=== PATIENT | female | born 1975 | race Caucasian/White ===

== ENCOUNTER → 2017-03-31 | Outpatient (CLI) | payer OTHER ==
[~2017-03-31] MED LIST: CITA20TA9 PO; HYDR12.53 PO; LEVO25TA4 PO; OMNIPAQUE 350 MG/ML, 100ML BOTTLE ONE; ONDA4TAB7 PO; OXYC-223 PO; SULF1TAB24 PO
== END | disposition home or self-care (01) ==
LOC: CFH 12:37
PROVIDERS: ATTEND Internal Medicine Hematology & Oncology
DX: K76.89 Other specified diseases of liver (principal); C50.412 Malignant neoplasm of upper-outer quadrant of left female breast; Z90.13 Acquired absence of bilateral breasts and nipples; Z92.21 Personal history of antineoplastic chemotherapy
CPT/HCPCS: 74160; Q9967

== ENCOUNTER → 2017-06-01 | Outpatient (CLI) | payer OTHER ==
[~2017-06-01] MED LIST changes: -OMNIPAQUE 350 MG/ML, 100ML BOTTLE ONE
== END | disposition home or self-care (01) ==
LOC: CFH 11:40
PROVIDERS: ATTEND Radiology Radiation Oncology
DX: M77.31 Calcaneal spur, right foot (principal); C50.411 Malignant neoplasm of upper-outer quadrant of right female breast

== ENCOUNTER → 2017-06-30 | Outpatient (CLI) | payer OTHER | END | disposition home or self-care (01) | LOC: ROC 09:48 | PROVIDERS: ATTEND Radiology Radiation Oncology | DX: C50.911 Malignant neoplasm of unspecified site of right female breast (principal) | CPT/HCPCS: 99212; G0463 ==

== ENCOUNTER → 2017-07-12 | Outpatient (CLI) | payer OTHER ==
[~2017-07-12] MED LIST changes: +DULO20CA45 PO; +TAMO20TA PO
[2017-07-12 10:34] LABS: HEMATOCRIT 39.4 % (34.6-47.8); HEMOGLOBIN 13.6 g/dL (11.7-16.4); WHITE BLOOD COUNT 3.8 x10^3/uL (3.4-10)
[2017-07-12 10:46] LABS: ASPARTATE AMINO TRANSFERASE 11 U/L (15-37); BLOOD UREA NITROGEN 12 mg/dL (7-18)
== END | disposition home or self-care (01) ==
LOC: STAR 09:44
PROVIDERS: ATTEND Obstetrics & Gynecology
DX: Z01.818 Encounter for other preprocedural examination (principal); Z85.3 Personal history of malignant neoplasm of breast
CPT/HCPCS: 36415; 71020; 80053; 81003; 85025

== ENCOUNTER 2017-07-27 05:45 | Inpatient (IN) | payer OTHER ==
[~2017-07-27] VITALS: Ht 167.6 cm; Wt 85.8 kg
[~2017-07-27 05:45] MED LIST changes: -OXYC-223 PO; +OXYC-306 PO
[2017-07-27] MEDS ORDERED: LACTATED RINGERS 1,000 ML IV SCH (06:15)
[2017-07-27 06:21] VITALS: BP 119/78
[2017-07-27] MEDS ORDERED: FENTANYL PF 100 MCG/2ML ONE ×3 (06:58→09:56)
[2017-07-27] MEDS ORDERED: MIDAZOLAM 1 MG/ML, 2ML ONE (06:58)
[2017-07-27] MEDS ORDERED: EPINEPHRINE 1 MG/ML, 1ML ONE (07:21)
[2017-07-27] MEDS ORDERED: FLUORESCEIN SODIUM 500 MG/5 ML ONE (07:21)
[2017-07-27] MEDS ORDERED: BUPIVACAINE/PF 0.25% ONE (07:21)
[2017-07-27] MEDS ORDERED: CEFAZOLIN 1,000 MG ONE (07:32)
[2017-07-27] MEDS ORDERED: NEOSTIGMINE 1 MG/ML, 10ML ONE (07:32)
[2017-07-27] MEDS ORDERED: GLYCOPYRROLATE 0.2MG/1ML, 5ML ONE (07:32)
[2017-07-27] MEDS ORDERED: ONDANSETRON 2MG/ML, 2ML ONE (07:32)
[2017-07-27] MEDS ORDERED: SUCCINYLCHOLINE 20 MG/ML, 10ML ONE (07:32)
[2017-07-27] MEDS ORDERED: PROPOFOL 10 MG/ML, 20ML ONE (07:32)
[2017-07-27] MEDS ORDERED: KETOROLAC 30 MG/1 ML ONE (07:32)
[2017-07-27] MEDS ORDERED: ROCURONIUM 10 MG/ML ONE (07:32)
[2017-07-27] MEDS ORDERED: BUPIVACAINE/PF-EPI 0.25% 1:200K INFIL ONE (08:10)
[2017-07-27] MEDS ORDERED: METOPROLOL 1 MG/ML, 5ML IV PRN (08:30)
[2017-07-27] MEDS ORDERED: HYDROmorphone 1 MG/ML, 1ML IV PRN (08:30)
[2017-07-27] MEDS ORDERED: HYDROcodone/APAP 7.5-325MG/15ML UDC PO PRN (08:30)
[2017-07-27] MEDS ORDERED: EPHEDRINE 50 MG/ML, 1ML IVPush PRN (08:30)
[2017-07-27] MEDS ORDERED: ALBUTEROL SULFATE 2.5 MG/3 ML NPPB PRN (08:30)
[2017-07-27] MEDS ORDERED: hydrALAzine 20 MG/ML, 1ML IV PRN (08:30)
[2017-07-27] MEDS ORDERED: MEPERIDINE/PF 25MG/0.5ML IVPush PRN (08:30)
[2017-07-27] MEDS ORDERED: ACETAMINOPHEN 325 MG TABLET PO PRN (08:30)
[2017-07-27] MEDS ORDERED: PROMETHAZINE 25 MG/ML, 1ML IV PRN (08:30)
[2017-07-27] MEDS ORDERED: LABETALOL 5MG/ML, 20ML IV PRN (08:30)
[2017-07-27] MEDS ORDERED: FENTANYL PF 100 MCG/2ML IV PRN (08:30)
[2017-07-27] MEDS ORDERED: ONDANSETRON 2MG/ML, 2ML IVPush PRN (08:30)
[2017-07-27] MEDS ORDERED: OXYcodone 5 MG/5 ML ORAL.SOL UDC PO PRN (08:30)
[2017-07-27] MEDS ORDERED: MIDAZOLAM 1 MG/ML, 2ML IV PRN (08:30)
[2017-07-27] MEDS ORDERED: OXYcodone 5 MG/5 ML ORAL.SOL UDC ONE (09:56)
[2017-07-27] MEDS ORDERED: ACETAMINOPHEN 650 MG/20.3 ML UDC ONE (09:56)
[2017-07-27] MEDS ORDERED: HYDROmorphone 2 MG/ML, 1ML IV PRN (11:30)
[2017-07-27] MEDS ORDERED: KETOROLAC 30 MG/1 ML IV PRN (11:30)
[2017-07-27] MEDS ORDERED: ONDANSETRON 2MG/ML, 2ML IV PRN (11:30)
[2017-07-27] MEDS: POTASSIUM CHLORIDE 20 MEQ in D5%-0.45% NACL 1,000 ML IV SCH ×2 (11:59→20:26)
[2017-07-27] MEDS: HYDROcodone/APAP 7.5-325MG/15ML UDC PO PRN ×3 (13:15→21:18)
[2017-07-27] MEDS: SIMETHICONE 80 MG CHEW TAB PO SCH (17:14)
[2017-07-27 19:43] VITALS: BP 115/71
[2017-07-27] MEDS: DOCUSATE 100 MG CAPSULE PO SCH (20:26)
[2017-07-27] MEDS: DULOXETINE 20 MG CAPSULE.DR PO SCH (20:28)
[2017-07-27] MEDS: SODIUM CHLORIDE FLUSH 10ML SYR IVF SCH (20:29)
[2017-07-27 23:52] VITALS: BP 110/67
[2017-07-28] MEDS: HYDROcodone/APAP 7.5-325MG/15ML UDC PO PRN ×3 (01:25→09:30)
[2017-07-28] MEDS: SIMETHICONE 80 MG CHEW TAB PO SCH ×2 (01:25→08:43)
[2017-07-28] MEDS: POTASSIUM CHLORIDE 20 MEQ in D5%-0.45% NACL 1,000 ML IV SCH (02:53)
[2017-07-28 04:19] VITALS: BP 109/72
[2017-07-28 06:00] LABS: HEMATOCRIT 31.5 % (34.6-47.8); WHITE BLOOD COUNT 5.9 x10^3/uL (3.4-10)
[2017-07-28] MEDS ORDERED: LEVOTHYROXINE 50 MCG TABLET PO SCH (06:00)
[2017-07-28 08:43] VITALS: BP 116/74
[2017-07-28] MEDS: DULOXETINE 20 MG CAPSULE.DR PO SCH (08:43)
[2017-07-28] MEDS: SODIUM CHLORIDE FLUSH 10ML SYR IVF SCH (08:43)
[2017-07-28] MEDS: DOCUSATE 100 MG CAPSULE PO SCH (08:43)
[2017-07-28] MEDS ORDERED: FUROSEMIDE 20 MG TABLET PO ONE (09:00)
[2017-07-28] MEDS ORDERED: CITALOPRAM 10 MG TABLET PO SCH (09:00)
== END 2017-07-28 11:03 | disposition home or self-care (01) | DRG 738 ==
LOC: OUT 05:45 → 4NOR 10:46 → OUT 16:21 → 4NOR 16:22
PROVIDERS: ADMIT Obstetrics & Gynecology; ATTEND Obstetrics & Gynecology
PROC: 0UT7FZZ Resection of Bilateral Fallopian Tubes, Via Natural or Artificial Opening With Percutaneous Endoscopic Assistance (ICD-10-PCS; 2017-07-27)
PROC: 0UT9FZZ Resection of Uterus, Via Natural or Artificial Opening With Percutaneous Endoscopic Assistance (ICD-10-PCS; 2017-07-27)
PROC: 0UT2FZZ Resection of Bilateral Ovaries, Via Natural or Artificial Opening With Percutaneous Endoscopic Assistance (ICD-10-PCS; principal; 2017-07-27 07:30)
DX: C56.9 Malignant neoplasm of unspecified ovary (principal); E03.9 Hypothyroidism, unspecified; Z79.810 Long term (current) use of selective estrogen receptor modulators (SERMs); Z78.0 Asymptomatic menopausal state; Z17.0 Estrogen receptor positive status [ER+]; Z85.3 Personal history of malignant neoplasm of breast; Z90.13 Acquired absence of bilateral breasts and nipples
CPT/HCPCS: 36415; 85025; 86850; 86900; 86923; 88307; J0171; J0690; J1885; J2250; J2405; J2704; J2710; J3010; J3480; J3490; J0330; J7120

== ENCOUNTER → 2017-10-29 | Outpatient (CLI) | payer OTHER | END | disposition home or self-care (01) | LOC: CFH 09:05 | PROVIDERS: ATTEND Physician Assistant | DX: M51.36 Other intervertebral disc degeneration, lumbar region (principal); M51.37 Other intervertebral disc degeneration, lumbosacral region; M51.26 Other intervertebral disc displacement, lumbar region | CPT/HCPCS: 72148 ==

== ENCOUNTER → 2017-11-01 | Outpatient (CLI) | payer OTHER ==
[2017-11-02 17:30] LABS: ANA SCREEN POSITIVE (Negative); ANA TITER MIXED
== END | disposition home or self-care (01) ==
LOC: LAB 14:03
PROVIDERS: ATTEND Internal Medicine Hematology & Oncology
DX: Z51.11 Encounter for antineoplastic chemotherapy (principal); D70.1 Agranulocytosis secondary to cancer chemotherapy; D63.0 Anemia in neoplastic disease; I89.9 Noninfective disorder of lymphatic vessels and lymph nodes, unspecified; L08.9 Local infection of the skin and subcutaneous tissue, unspecified; C50.419 Malignant neoplasm of upper-outer quadrant of unspecified female breast
CPT/HCPCS: 36415; 85651; 86038; 86039

== ENCOUNTER → 2017-12-01 | Outpatient (CLI) | payer OTHER ==
[2017-12-01 12:44] LABS: HCT (SEDRATE) 39.3 % (34.6-47.8)
[2017-12-01 12:45] LABS: BASOPHILS # (AUTO) 0.02 x10^3/uL (0-0.1); BASOPHILS % (AUTO) 1 % (0-1); EOSINOPHILS # (AUTO) 0.21 x10^3/uL (0-0.4); EOSINOPHILS % (AUTO) 5 % (1-7); LYMPHOCYTES # (AUTO) 1.07 x10^3/uL (1-3.4); LYMPHOCYTES % (AUTO) 27 % (22-44); MD NO; MEAN CORPUSCULAR HGB CONC 34.4 g/dL (32.4-35.8); MEAN CORPUSCULAR VOLUME 98.9 fL (80-100); MEAN PLATELET VOLUME 9.1 fL (7.4-10.4); MONOCYTES # (AUTO) 0.29 x10^3/uL (0.2-0.8); MONOCYTES % (AUTO) 7 % (2-9); NEUTROPHILS # (AUTO) 2.43 x10^3/uL (1.8-6.8); NEUTROPHILS % (AUTO) 60 % (42-75); PLATELET COUNT 196 x10^3/uL (130-400); RED BLOOD COUNT 3.95 x10^6/uL (3.82-5.3); RED CELL DISTRIBUTION WIDTH 12.5 % (9.6-15.2)
[2017-12-01 12:48] LABS: MICROSCOPIC NOT IND
[2017-12-01 12:49] LABS: CULTURE INDICATED? NO
[2017-12-01 12:52] LABS: CHLORIDE 106 mmol/L (98-107)
[2017-12-01 13:08] LABS: ANION GAP 9 mmol/L (5-15); CALCIUM 8.6 mg/dL (8.5-10.1); CREATININE 0.77 mg/dL (0.55-1.02)
[2017-12-01 13:09] LABS: ALANINE AMINOTRANSFERASE 28 U/L (12-78); ALBUMIN 4.3 g/dL (3.4-5.0); ALKALINE PHOSPHATASE 72 U/L (45-117); BILIRUBIN,TOTAL 1.6 mg/dL (0.2-1.0); C-REACTIVE PROTEIN, QUANT 0.08 mg/dL (0.02-0.49); CREATINE KINASE, TOTAL 354 U/L (26-192); TOTAL PROTEIN 7.3 g/dL (6.4-8.2)
== END ==
LOC: CFH 10:07
PROVIDERS: ATTEND Specialist
DX: M35.9 Systemic involvement of connective tissue, unspecified (principal)
CPT/HCPCS: 36415; 80053; 81003; 82550; 84443; 85025; 85651; 85730; 86038; 86140; 86160; 86225; 86235

== ENCOUNTER → 2017-12-01 | Outpatient (CLI) | payer OTHER | LOC: ROC 10:05 | PROVIDERS: ATTEND Radiology Radiation Oncology | DX: C50.912 Malignant neoplasm of unspecified site of left female breast (principal) | CPT/HCPCS: 99212; G0463 ==

== ENCOUNTER → 2018-02-02 | Outpatient (CLI) | payer OTHER | END | disposition home or self-care (01) | LOC: ROC 07:27 | PROVIDERS: ATTEND Radiology Radiation Oncology | DX: Z08 Encounter for follow-up examination after completed treatment for malignant neoplasm (principal); C50.911 Malignant neoplasm of unspecified site of right female breast; Z90.13 Acquired absence of bilateral breasts and nipples; Z92.3 Personal history of irradiation | CPT/HCPCS: 99213; G0463 ==

== ENCOUNTER 2018-02-10 06:36 | Day surgery (SDC) | payer OTHER ==
[~2018-02-10] VITALS: Ht 167.6 cm; Wt 90.9 kg
[~2018-02-10 06:36] MED LIST changes: +ANAS1TAB3 PO; +ARIP2TAB2 PO; +AUGMENTIN PO; +DULO60CA7 PO
[2018-02-10] MEDS ORDERED: LACTATED RINGERS 1,000 ML IV SCH (07:10)
[2018-02-10 07:28] VITALS: BP 122/83
[2018-02-10] MEDS ORDERED: LIDOCAINE-MPF 1%, 2ML INFIL ONE (07:30)
[2018-02-10] MEDS ORDERED: ONDANSETRON 2MG/ML, 2ML IVPush ONE (07:30)
[2018-02-10] MEDS ORDERED: ACETAMINOPHEN 500 MG TABLET PO ONE (07:30)
[2018-02-10] MEDS ORDERED: SCOPOLAMINE PATCH, 1.5MG PATCH.TD72 TD ONE (07:30)
[2018-02-10] MEDS ORDERED: BUPIVACAINE/PF 0.5% ONE (07:43)
[2018-02-10] MEDS ORDERED: EPINEPHRINE 1 MG/ML, 1ML ONE (07:44)
[2018-02-10] MEDS ORDERED: GABAPENTIN 300 MG CAPSULE PO ONE (08:00)
[2018-02-10] MEDS ORDERED: OxyconTIN ER 10 MG TAB.ER PO ONE (08:00)
[2018-02-10] MEDS ORDERED: MIDAZOLAM 1 MG/ML, 2ML ONE (08:05)
[2018-02-10] MEDS ORDERED: FENTANYL PF 100 MCG/2ML ONE ×2 (08:05→10:06)
[2018-02-10] MEDS ORDERED: DIAZEPAM 5 MG/ML, 2ML IVPush PRN (09:00)
[2018-02-10] MEDS ORDERED: hydrALAzine 20 MG/ML, 1ML IV PRN (09:00)
[2018-02-10] MEDS ORDERED: EPHEDRINE 50 MG/ML, 1ML IVPush PRN (09:00)
[2018-02-10] MEDS ORDERED: OXYcodone 5 MG/5 ML ORAL.SOL UDC PO PRN (09:00)
[2018-02-10] MEDS ORDERED: HYDROcodone/APAP 7.5-325MG/15ML UDC PO PRN (09:00)
[2018-02-10] MEDS ORDERED: ONDANSETRON 2MG/ML, 2ML IVPush PRN (09:00)
[2018-02-10] MEDS ORDERED: MEPERIDINE/PF 25MG/0.5ML IVPush PRN (09:00)
[2018-02-10] MEDS ORDERED: LABETALOL 5MG/ML, 20ML IV PRN (09:00)
[2018-02-10] MEDS ORDERED: METOPROLOL 1 MG/ML, 5ML IV PRN (09:00)
[2018-02-10] MEDS ORDERED: MIDAZOLAM 1 MG/ML, 2ML IV PRN (09:00)
[2018-02-10] MEDS ORDERED: PROMETHAZINE 12.5 MG SUPP PR PRN (09:00)
[2018-02-10] MEDS ORDERED: ALBUTEROL SULFATE 2.5 MG/3 ML NPPB PRN (09:00)
[2018-02-10] MEDS ORDERED: PROMETHAZINE 25 MG/ML, 1ML IV PRN (09:00)
[2018-02-10] MEDS ORDERED: morphine SULFATE 10 MG/ML, 1ML IV PRN (09:00)
[2018-02-10] MEDS ORDERED: SUCCINYLCHOLINE 20 MG/ML, 10ML ONE (09:10)
[2018-02-10] MEDS ORDERED: CEFAZOLIN 1,000 MG ONE (09:10)
[2018-02-10] MEDS ORDERED: PROPOFOL 10 MG/ML, 20ML ONE (09:10)
[2018-02-10] MEDS ORDERED: DEXAMETHASONE 4 MG/ML, 1ML ONE (09:10)
[2018-02-10] MEDS ORDERED: ROCURONIUM 10 MG/ML,10ML ONE (09:10)
[2018-02-10] MEDS ORDERED: ONDANSETRON 2MG/ML, 2ML ONE ×2 (09:10→10:06)
[2018-02-10] MEDS ORDERED: NEOSTIGMINE 1 MG/ML, 10ML ONE (09:10)
[2018-02-10] MEDS ORDERED: GLYCOPYRROLATE 0.2MG/1ML, 5ML ONE (09:10)
[2018-02-10] MEDS ORDERED: OXYcodone 5 MG/5 ML ORAL.SOL UDC ONE (10:06)
[2018-02-10] MEDS: FENTANYL PF 100 MCG/2ML IV PRN ×2 (10:08→10:28)
[2018-02-10] MEDS ORDERED: OXYcodone/APAP 5/325MG TABLET PO PRN (12:00)
[2018-02-10] MEDS ORDERED: OXYcodone/APAP 5/325MG TABLET ONE (12:03)
== END 2018-02-10 12:50 ==
LOC: OUT 06:36
PROVIDERS: ATTEND Surgery
DX: K80.10 Calculus of gallbladder with chronic cholecystitis without obstruction (principal); E03.9 Hypothyroidism, unspecified; Z98.890 Other specified postprocedural states; Z85.3 Personal history of malignant neoplasm of breast; Z72.89 Other problems related to lifestyle
CPT/HCPCS: 47562; 88304; J0171; J0330; J0690; J1100; J2250; J2405; J2704; J2710; J3010; J3490; J7120

== ENCOUNTER 2018-04-14 12:30 | Inpatient (IN) | payer OTHER ==
[~2018-04-14] VITALS: Ht 167.6 cm; Wt 81.5 kg
[~2018-04-14 12:30] MED LIST changes: -ANAS1TAB3 PO; +ANAS1TAB49 PO
[2018-09-08] MEDS ORDERED: FAMOTIDINE 20 MG TABLET PO ONE (11:30)
[2018-09-08] MEDS ORDERED: GABAPENTIN 300 MG CAPSULE PO ONE (11:30)
[2018-09-08] MEDS ORDERED: ONDANSETRON ODT 8 MG PO ONE (11:30)
[2018-09-08] MEDS ORDERED: ACETAMINOPHEN 500 MG TABLET PO ONE (11:30)
[2018-09-08] MEDS ORDERED: DEXAMETHASONE 4 MG/ML, 1ML ONE (11:35)
[2018-09-08] MEDS ORDERED: GLYCOPYRROLATE 0.2MG/1ML, 5ML ONE (11:35)
[2018-09-08] MEDS ORDERED: FENTANYL PF 250 MCG/5ML ONE ×2 (11:35→12:48)
[2018-09-08] MEDS ORDERED: ROCURONIUM 10MG/ML,5ML ONE (11:35)
[2018-09-08] MEDS ORDERED: LIDOCAINE-MPF 2% ,5ML ONE (11:35)
[2018-09-08] MEDS ORDERED: PROPOFOL 10 MG/ML, 20ML ONE (11:35)
[2018-09-08] MEDS ORDERED: MIDAZOLAM 1 MG/ML, 2ML ONE ×2 (11:35→12:48)
[2018-09-08] MEDS ORDERED: HYDROcodone/APAP 7.5-325MG/15ML UDC PO PRN (12:00)
[2018-09-08] MEDS ORDERED: DEXAMETHASONE 4 MG/ML, 1ML IV PRN ×2 (12:00→14:00)
[2018-09-08] MEDS ORDERED: ONDANSETRON ODT 8 MG PO PRN ×2 (12:00→14:00)
[2018-09-08] MEDS ORDERED: KETOROLAC 30 MG/1 ML IV PRN (12:00)
[2018-09-08] MEDS ORDERED: ALBUTEROL SULFATE 2.5 MG/3 ML NPPB PRN (12:00)
[2018-09-08] MEDS ORDERED: LABETALOL 5MG/ML, 20ML IV PRN (12:00)
[2018-09-08] MEDS ORDERED: MEPERIDINE/PF 25MG/0.5ML IVPush PRN ×2 (12:00→14:00)
[2018-09-08] MEDS ORDERED: EPHEDRINE 50 MG/ML, 1ML IM PRN ×2 (12:00→14:00)
[2018-09-08] MEDS ORDERED: EPHEDRINE 50 MG/ML, 1ML IVPush PRN ×2 (12:00→14:00)
[2018-09-08] MEDS ORDERED: MIDAZOLAM 1 MG/ML, 2ML IV PRN ×2 (12:00→14:00)
[2018-09-08] MEDS ORDERED: MECLIZINE CHEWABLE 25 MG TAB PO PRN (12:00)
[2018-09-08] MEDS ORDERED: GENTAMICIN 80 MG/2 ML ONE (12:28)
[2018-09-08] MEDS ORDERED: CEFAZOLIN 1,000 MG ONE (12:28)
[2018-09-08] MEDS ORDERED: BACITRACIN 50,000 UNIT ONE (12:30)
[2018-09-08] MEDS ORDERED: ROPIvacaine/PF 0.5%, 30 ML ONE (13:00)
[2018-09-08] MEDS ORDERED: SUCCINYLCHOLINE 20 MG/ML, 10ML ONE (13:10)
[2018-09-08] MEDS ORDERED: METHYLENE BLUE 10 MG/ML 10ML ONE ×2 (13:49→14:33)
[2018-09-08] MEDS ORDERED: PROMETHAZINE 12.5 MG SUPP PR PRN (14:00)
[2018-09-08] MEDS ORDERED: MORPHINE SULFATE 4 MG/ML, 1ML IVPush PRN (14:00)
[2018-09-08] MEDS ORDERED: FENTANYL PF 100 MCG/2ML IV PRN (14:00)
[2018-09-08] MEDS ORDERED: PROMETHAZINE 25 MG/ML, 1ML IV PRN (14:00)
[2018-09-08] MEDS ORDERED: ACETAMINOPHEN 325 MG TABLET PO PRN ×2 (14:00→20:30)
[2018-09-08] MEDS ORDERED: DIPHENHYDRAMINE 50 MG/ML, 1ML IVPush PRN (14:00)
[2018-09-08] MEDS ORDERED: PROMETHAZINE 25 MG SUPP PR PRN (14:00)
[2018-09-08] MEDS ORDERED: ONDANSETRON 2MG/ML, 2ML IV PRN ×2 (14:00→20:30)
[2018-09-08] MEDS ORDERED: OXYcodone 5 MG/5 ML ORAL.SOL UDC PO PRN (14:00)
[2018-09-08] MEDS ORDERED: SCOPOLAMINE PATCH, 1.5MG PATCH.TD72 TD ONE (14:18)
[2018-09-08] MEDS ORDERED: ONDANSETRON 2MG/ML, 2ML ONE (17:11)
[2018-09-08] MEDS ORDERED: FENTANYL PF 100 MCG/2ML ONE (18:00)
[2018-09-08] MEDS ORDERED: OXYcodone 5 MG/5 ML ORAL.SOL UDC ONE (18:00)
[2018-09-08] MEDS ORDERED: HYDROmorphone 2 MG/ML, 1ML ONE ×2 (18:00→20:34)
[2018-09-08] MEDS: FENTANYL PF 100 MCG/2ML IV PRN ×2 (18:05→18:14)
[2018-09-08] MEDS: HYDROmorphone 1 MG/ML, 1ML IV PRN ×3 (18:16→20:47)
[2018-09-08] MEDS ORDERED: LORazepam 1MG TABLET PO PRN (20:30)
[2018-09-08] MEDS ORDERED: CEFAZOLIN PMX 2GM/100ML 100 ML IVPB SCH (20:30)
[2018-09-08] MEDS ORDERED: hydrALAzine 20 MG/ML, 1ML IV PRN (20:30)
[2018-09-08] MEDS ORDERED: LORazepam 2 MG/ML, 1ML IV PRN (20:30)
[2018-09-08] MEDS ORDERED: HYDROmorphone 1 MG/ML, 1ML IV PRN (20:30)
[2018-09-08] MEDS ORDERED: DIPHENHYDRAMINE 50 MG/ML, 1ML IV PRN (20:30)
[2018-09-08] MEDS ORDERED: LACTATED RINGERS 500 ML IV PRN (20:30)
[2018-09-08] MEDS ORDERED: ACETAMINOPHEN 650 MG SUPP PR PRN (20:30)
[2018-09-08] MEDS ORDERED: DIPHENHYDRAMINE 25 MG CAPSULE PO PRN (20:30)
[2018-09-08] MEDS: D5%-LACTATED RINGERS 1,000 ML IV SCH (20:50)
[2018-09-08] MEDS: CEFAZOLIN PMX 2GM/50ML 50 ML IVPB SCH (20:50)
[2018-09-08] MEDS: OXYcodone/APAP 5/325MG TABLET PO PRN (21:57)
[2018-09-08] MEDS ORDERED: SODIUM CHLORIDE 0.9%, 500ML IVBOLUS ONE (22:30)
[2018-09-09] VITALS: BP 110/59
[2018-09-09] MEDS ORDERED: HYDROmorphone 2 MG/ML, 1ML ONE (00:31)
[2018-09-09] MEDS: HYDROmorphone 1 MG/ML, 1ML IV PRN (00:34)
[2018-09-09] MEDS: OXYcodone/APAP 5/325MG TABLET PO PRN ×3 (03:05→12:23)
[2018-09-09 04:45] VITALS: BP 122/62
[2018-09-09] MEDS: CEFAZOLIN PMX 2GM/50ML 50 ML IVPB SCH (05:15)
[2018-09-09] MEDS ORDERED: LEVOTHYROXINE 50 MCG TABLET PO SCH (06:00)
[2018-09-09 08:05] VITALS: BP 103/69
[2018-09-09] MEDS ORDERED: OXYC-307 PO (09:00)
[2018-09-09] MEDS ORDERED: ANASTROZOLE 1 MG TABLET PO SCH (09:00)
[2018-09-09] MEDS ORDERED: ONDA4TAB7 PO (09:00)
[2018-09-09] MEDS ORDERED: DULOXETINE 30 MG CAPSULE.DR PO SCH (09:00)
[2018-09-09] MEDS ORDERED: SULF1TAB24 PO (09:01)
[2018-09-09] MEDS ORDERED: LACTATED RINGERS 1,000 ML IVBOLUS ONE (09:30)
[2018-09-09] MEDS ORDERED: HEPARIN 5,000 UNITS/ML, 1ML SQ SCH (12:00)
[2018-09-09 12:55] VITALS: BP 106/66
[2018-09-09] MEDS: D5%-LACTATED RINGERS 1,000 ML IV SCH (13:30)
== END 2018-09-09 15:00 | disposition home or self-care (01) | DRG 583 ==
LOC: ORIP 09-08 11:09 → EDSTATUS 09-08 13:00 → 4NOR 09-08 19:10 → DCLOUNGE 09-09 14:45
PROVIDERS: ADMIT Plastic Surgery; ATTEND Plastic Surgery
PROC: 0KXF0Z5 Transfer Right Trunk Muscle, Latissimus Dorsi Myocutaneous Flap, Open Approach (ICD-10-PCS; 2018-09-08)
PROC: 0HHV0NZ Insertion of Tissue Expander into Bilateral Breast, Open Approach (ICD-10-PCS; 2018-09-08)
PROC: 0KXG0Z5 Transfer Left Trunk Muscle, Latissimus Dorsi Myocutaneous Flap, Open Approach (ICD-10-PCS; principal; 2018-09-08 13:00)
DX: C50.911 Malignant neoplasm of unspecified site of right female breast (principal); M06.9 Rheumatoid arthritis, unspecified; E03.9 Hypothyroidism, unspecified; Z92.3 Personal history of irradiation; Z87.891 Personal history of nicotine dependence; Z80.3 Family history of malignant neoplasm of breast
CPT/HCPCS: J3490; J7121; C1729; G0378; J0690; J1100; J1170; J1644; J2250; J2405; J2704; J2795; J3010; Q0162; J0330; J1580; J7040; J7120; Q9968

== ENCOUNTER → 2018-04-21 | Outpatient (CLI) | payer OTHER ==
[~2018-04-21] MED LIST changes: +ANAS1TAB3 PO; -ANAS1TAB49 PO; +OMNIPAQUE 350 MG/ML, 100ML BOTTLE ONE
== END | disposition home or self-care (01) ==
LOC: CFH 09:28
PROVIDERS: ATTEND Internal Medicine Hematology & Oncology
DX: K76.89 Other specified diseases of liver (principal); C50.419 Malignant neoplasm of upper-outer quadrant of unspecified female breast
CPT/HCPCS: 74160; Q9967

== ENCOUNTER → 2018-05-19 | Outpatient (CLI) | payer OTHER ==
[~2018-05-19] MED LIST changes: -OMNIPAQUE 350 MG/ML, 100ML BOTTLE ONE
== END | disposition home or self-care (01) ==
LOC: LAB 07:19
PROVIDERS: ATTEND Radiology Radiation Oncology
DX: C50.919 Malignant neoplasm of unspecified site of unspecified female breast (principal)
CPT/HCPCS: 36415; 82947

== ENCOUNTER → 2018-08-04 | Outpatient (CLI) | payer OTHER ==
[~2018-08-04] MED LIST changes: -ANAS1TAB3 PO; +ANAS1TAB49 PO
== END | disposition home or self-care (01) ==
LOC: ROC 08:33
PROVIDERS: ATTEND Radiology Radiation Oncology
DX: C50.919 Malignant neoplasm of unspecified site of unspecified female breast (principal); Z87.891 Personal history of nicotine dependence
CPT/HCPCS: 99212; G0463

== ENCOUNTER → 2018-08-29 | Outpatient (CLI) | payer OTHER ==
[2018-08-29 09:07] LABS: BASOPHILS # (AUTO) 0.02 x10^3/uL (0-0.1); BASOPHILS % (AUTO) 1 % (0-1); EOSINOPHILS % (AUTO) 7 % (1-7); LYMPHOCYTES # (AUTO) 1.37 x10^3/uL (1-3.4); LYMPHOCYTES % (AUTO) 31 % (22-44); MD NO; MEAN CORPUSCULAR HEMOGLOBIN 33.6 pg (27.0-34.8); MEAN CORPUSCULAR HGB CONC 34.7 g/dL (32.4-35.8); MEAN CORPUSCULAR VOLUME 96.8 fL (80-100); MEAN PLATELET VOLUME 9.7 fL (7.4-10.4); MONOCYTES # (AUTO) 0.28 x10^3/uL (0.2-0.8); MONOCYTES % (AUTO) 6 % (2-9); NEUTROPHILS # (AUTO) 2.46 x10^3/uL (1.8-6.8); NEUTROPHILS % (AUTO) 56 % (42-75); PLATELET COUNT 155 x10^3/uL (130-400); RED BLOOD COUNT 4.18 x10^6/uL (3.82-5.3); RED CELL DISTRIBUTION WIDTH 12.6 % (9.6-15.2)
== END | disposition home or self-care (01) ==
LOC: STAR 08:07
PROVIDERS: ATTEND Plastic Surgery
DX: Z01.818 Encounter for other preprocedural examination (principal); Z85.3 Personal history of malignant neoplasm of breast
CPT/HCPCS: 36415; 85025; 93005

== ENCOUNTER → 2018-12-27 | Outpatient (CLI) | payer OTHER ==
[~2018-12-27] MED LIST changes: +DENO60DI INJ; +HYDR12.517 PO; -HYDR12.53 PO; +LEVO50TA PO; +OXYC-307 PO
[2018-12-27 09:43] LABS: BASOPHILS # (AUTO) 0.03 x10^3/uL (0-0.1); BASOPHILS % (AUTO) 1 % (0-1); EOSINOPHILS # (AUTO) 0.25 x10^3/uL (0-0.4); EOSINOPHILS % (AUTO) 6 % (1-7); LYMPHOCYTES # (AUTO) 1.29 x10^3/uL (1-3.4); LYMPHOCYTES % (AUTO) 31 % (22-44); MD NO; MEAN CORPUSCULAR VOLUME 97.2 fL (80-100); MEAN PLATELET VOLUME 8.1 fL (7.4-10.4); MONOCYTES # (AUTO) 0.29 x10^3/uL (0.2-0.8); MONOCYTES % (AUTO) 7 % (2-9); NEUTROPHILS # (AUTO) 2.28 x10^3/uL (1.8-6.8); NEUTROPHILS % (AUTO) 55 % (42-75); PLATELET COUNT 199 x10^3/uL (130-400); RED BLOOD COUNT 4.38 x10^6/uL (3.82-5.3); RED CELL DISTRIBUTION WIDTH 12.4 % (9.6-15.2)
== END | disposition home or self-care (01) ==
LOC: STAR 08:58
PROVIDERS: ATTEND Plastic Surgery
DX: Z01.818 Encounter for other preprocedural examination (principal); C50.811 Malignant neoplasm of overlapping sites of right female breast; Z88.9 Allergy status to unspecified drugs, medicaments and biological substances
CPT/HCPCS: 36415; 85025

== ENCOUNTER 2019-01-05 08:35 | Day surgery (SDC) | payer OTHER ==
[~2019-01-05] VITALS: Ht 167.6 cm; Wt 82.4 kg
[2019-01-05] MEDS ORDERED: MIDAZOLAM 1 MG/ML, 2ML ONE (08:37)
[2019-01-05] MEDS ORDERED: FENTANYL PF 250 MCG/5ML ONE (08:38)
[2019-01-05] MEDS ORDERED: GLYCOPYRROLATE 0.2MG/1ML, 5ML ONE (08:40)
[2019-01-05] MEDS ORDERED: NEOSTIGMINE 1 MG/ML, 10ML ONE (08:40)
[2019-01-05] MEDS ORDERED: CEFAZOLIN 1,000 MG ONE (08:40)
[2019-01-05] MEDS ORDERED: PROPOFOL 10 MG/ML, 20ML ONE (08:40)
[2019-01-05] MEDS ORDERED: ONDANSETRON 2MG/ML, 2ML ONE (08:40)
[2019-01-05] MEDS ORDERED: ROCURONIUM 10MG/ML,5ML ONE (08:40)
[2019-01-05] MEDS ORDERED: LACTATED RINGERS 1,000 ML IV SCH ×2 (08:46→09:21)
[2019-01-05] MEDS ORDERED: GABAPENTIN 300 MG CAPSULE PO ONE (09:00)
[2019-01-05] MEDS ORDERED: ACETAMINOPHEN 500 MG TABLET PO ONE (09:00)
[2019-01-05 09:17] VITALS: BP 125/82
[2019-01-05] MEDS ORDERED: BACITRACIN 50,000 UNIT ONE (09:51)
[2019-01-05] MEDS ORDERED: GENTAMICIN 80 MG/2 ML ONE (09:52)
[2019-01-05] MEDS ORDERED: PROMETHAZINE 12.5 MG SUPP PR PRN (10:00)
[2019-01-05] MEDS ORDERED: PROMETHAZINE 25 MG/ML, 1ML IM PRN ×2 (10:00)
[2019-01-05] MEDS ORDERED: ONDANSETRON 2MG/ML, 2ML IV PRN (10:00)
[2019-01-05] MEDS ORDERED: MORPHINE SULFATE 4 MG/ML, 1ML IVPush PRN (10:00)
[2019-01-05] MEDS ORDERED: PROMETHAZINE 25 MG/ML, 1ML IV PRN (10:00)
[2019-01-05] MEDS ORDERED: MEPERIDINE/PF 25MG/0.5ML IVPush PRN (10:00)
[2019-01-05] MEDS ORDERED: HYDROmorphone 2 MG/ML, 1ML IVPush PRN (10:00)
[2019-01-05] MEDS ORDERED: ONDANSETRON ODT 8 MG PO PRN (10:00)
[2019-01-05] MEDS ORDERED: PROMETHAZINE 25 MG SUPP PR PRN (10:00)
[2019-01-05] MEDS ORDERED: LABETALOL 5MG/ML, 20ML IV PRN (10:00)
[2019-01-05] MEDS ORDERED: hydrALAzine 20 MG/ML, 1ML IV PRN (10:00)
[2019-01-05] MEDS ORDERED: BUPIVACAINE/PF-EPI 0.5% 1:200K ONE (10:37)
[2019-01-05] MEDS ORDERED: SODIUM BICARBONATE 1 MEQ/ML, 50ML VIAL ONE (11:01)
[2019-01-05] MEDS ORDERED: LIDOCAINE 1%, 20ML ONE (11:01)
[2019-01-05] MEDS ORDERED: LIDOCAINE/PF 0.5% ,50ML ONE (11:01)
[2019-01-05] MEDS ORDERED: EPINEPHRINE 1 MG/ML, 1ML ONE (11:09)
[2019-01-05] MEDS ORDERED: LIDOCAINE-MPF 2% ,5ML ONE ×2 (11:09→11:15)
[2019-01-05] MEDS ORDERED: FENTANYL PF 100 MCG/2ML ONE ×2 (11:52→13:30)
[2019-01-05] MEDS ORDERED: MEPERIDINE/PF 25MG/ML,1ML ONE (12:47)
[2019-01-05] MEDS ORDERED: ACETAMINOPHEN 325 MG TABLET ONE (13:17)
[2019-01-05] MEDS ORDERED: ACETAMINOPHEN 650 MG/20.3 ML UDC ONE (13:17)
[2019-01-05] MEDS ORDERED: OXYcodone 5 MG/5 ML ORAL.SOL UDC ONE ×2 (13:17→13:40)
[2019-01-05] MEDS: OXYcodone 5 MG/5 ML ORAL.SOL UDC PO PRN ×2 (13:20→13:43)
[2019-01-05] MEDS: FENTANYL PF 100 MCG/2ML IV PRN ×2 (13:33→13:43)
== END 2019-01-05 15:35 | disposition home or self-care (01) ==
LOC: OUT 08:35
PROVIDERS: ATTEND Plastic Surgery
DX: N65.1 Disproportion of reconstructed breast (principal); F32.9 Major depressive disorder, single episode, unspecified; E03.9 Hypothyroidism, unspecified; Z85.3 Personal history of malignant neoplasm of breast; Z98.890 Other specified postprocedural states; Z87.891 Personal history of nicotine dependence; Z79.899 Other long term (current) drug therapy
CPT/HCPCS: 11970; 19366; 20926; C1729; C1789; J0171; J0690; J1580; J2175; J2250; J2405; J2704; J2710; J3010; J3490; J2001

== ENCOUNTER → 2019-02-09 | Outpatient (CLI) | payer OTHER ==
[2019-02-09 11:04] LABS: BASOPHILS # (AUTO) 0.02 x10^3/uL (0-0.1); BASOPHILS % (AUTO) 1 % (0-1); EOSINOPHILS # (AUTO) 0.39 x10^3/uL (0-0.4); EOSINOPHILS % (AUTO) 10 % (1-7); LYMPHOCYTES # (AUTO) 1.28 x10^3/uL (1-3.4); LYMPHOCYTES % (AUTO) 34 % (22-44); MD NO; MEAN CORPUSCULAR HEMOGLOBIN 34.5 pg (27.0-34.8); MEAN CORPUSCULAR HGB CONC 35.1 g/dL (32.4-35.8); MEAN CORPUSCULAR VOLUME 98.5 fL (80-100); MONOCYTES # (AUTO) 0.22 x10^3/uL (0.2-0.8); MONOCYTES % (AUTO) 6 % (2-9); NEUTROPHILS % (AUTO) 50 % (42-75); PLATELET COUNT 179 x10^3/uL (130-400); RED BLOOD COUNT 4.41 x10^6/uL (3.82-5.3); RED CELL DISTRIBUTION WIDTH 12.5 % (9.6-15.2)
[2019-02-09 11:13] LABS: ALBUMIN 4.4 g/dL (3.4-5.0); ANION GAP 4 mmol/L (5-15); CALCIUM 8.1 mg/dL (8.5-10.1); CHLORIDE 110 mmol/L (98-107)
[2019-02-09 11:22] LABS: ALANINE AMINOTRANSFERASE 21 U/L (12-78); ALKALINE PHOSPHATASE 66 U/L (45-117); BILIRUBIN,TOTAL 1.7 mg/dL (0.2-1.0); CHOL/HDL RATIO 2.8; CHOLESTEROL, TOTAL 184 mg/dL (140-239); CREATININE 0.76 mg/dL (0.55-1.02); HDL CHOL % 35 % (28-40); HDL CHOLESTEROL (DIRECT) 65 mg/dL (40-60); LDL CHOLESTEROL,CALCULATED 111 mg/dL (54-169); LDL/HDL RATIO 1.7 (0.5-3.0); T4 (THYROXINE) 7.4 mcg/dL (4.8-13.9); TOTAL PROTEIN 7.2 g/dL (6.4-8.2); TRIGLYCERIDES 38 mg/dL (50-200); VLDL CHOLESTEROL 8 mg/dL (0-25)
== END | disposition home or self-care (01) ==
LOC: CFH 08:49
PROVIDERS: ATTEND Radiology Radiation Oncology
DX: Z00.00 Encounter for general adult medical examination without abnormal findings (principal); C50.919 Malignant neoplasm of unspecified site of unspecified female breast; E03.9 Hypothyroidism, unspecified; E55.9 Vitamin D deficiency, unspecified; E78.00 Pure hypercholesterolemia, unspecified; M54.5 Low back pain; F32.9 Major depressive disorder, single episode, unspecified; R53.83 Other fatigue
CPT/HCPCS: 36415; 80053; 80061; 84436; 84443; 84481; 85025

== ENCOUNTER 2019-02-16 08:10 | Outpatient (CLI) | payer OTHER | END 2019-02-16 23:59 | disposition home or self-care (01) | LOC: ROC 08:10 | PROVIDERS: ATTEND Radiology Radiation Oncology | DX: Z08 Encounter for follow-up examination after completed treatment for malignant neoplasm (principal); C50.411 Malignant neoplasm of upper-outer quadrant of right female breast | CPT/HCPCS: 99212; G0463 ==

== ENCOUNTER 2019-03-27 12:44 | Day surgery (SDC) | payer OTHER ==
[~2019-03-27] VITALS: Ht 167.6 cm; Wt 88.7 kg
[~2019-03-27 12:44] MED LIST changes: +CALC625T23 PO
[2019-03-27] MEDS ORDERED: LACTATED RINGERS 1,000 ML IV SCH ×2 (13:01→20:00)
[2019-03-27 13:16] VITALS: BP 145/98
[2019-03-27] MEDS ORDERED: GABAPENTIN 300 MG CAPSULE PO ONE (13:30)
[2019-03-27] MEDS ORDERED: ACETAMINOPHEN 500 MG TABLET PO ONE (13:30)
[2019-03-27] MEDS ORDERED: DIAZEPAM 5 MG TABLET PO ONE (13:30)
[2019-03-27] MEDS ORDERED: SCOPOLAMINE PATCH, 1.5MG PATCH.TD72 TD ONE (13:30)
[2019-03-27] MEDS ORDERED: GENTAMICIN 80 MG/2 ML ONE (14:19)
[2019-03-27] MEDS ORDERED: CEFAZOLIN 1,000 MG ONE ×2 (14:19→16:36)
[2019-03-27] MEDS ORDERED: FENTANYL PF 250 MCG/5ML ONE (14:19)
[2019-03-27] MEDS ORDERED: MIDAZOLAM 1 MG/ML, 2ML ONE (14:19)
[2019-03-27] MEDS ORDERED: LIDOCAINE-MPF 2% ,5ML ONE (14:20)
[2019-03-27] MEDS ORDERED: BACITRACIN 50,000 UNIT ONE (14:20)
[2019-03-27] MEDS ORDERED: SODIUM BICARBONATE 1 MEQ/ML, 50ML VIAL ONE (14:20)
[2019-03-27] MEDS ORDERED: EPINEPHRINE 1 MG/ML, 1ML ONE (14:20)
[2019-03-27] MEDS ORDERED: PROCHLORPERAZINE 5 MG/ML, 2ML IV PRN (14:30)
[2019-03-27] MEDS ORDERED: OXYcodone 5 MG/5 ML ORAL.SOL UDC PO PRN (14:30)
[2019-03-27] MEDS ORDERED: MEPERIDINE/PF 25MG/0.5ML IVPush PRN (14:30)
[2019-03-27] MEDS ORDERED: METOPROLOL 1 MG/ML, 5ML IV PRN (14:30)
[2019-03-27] MEDS ORDERED: DIPHENHYDRAMINE 50 MG/ML, 1ML IVPush PRN ×2 (14:30→20:00)
[2019-03-27] MEDS ORDERED: PROMETHAZINE 25 MG/ML, 1ML IV PRN (14:30)
[2019-03-27] MEDS ORDERED: FENTANYL PF 100 MCG/2ML IV PRN (14:30)
[2019-03-27] MEDS ORDERED: LABETALOL 5MG/ML, 20ML IV PRN (14:30)
[2019-03-27] MEDS ORDERED: hydrALAzine 20 MG/ML, 1ML IV PRN (14:30)
[2019-03-27] MEDS ORDERED: HALOPERIDOL 5 MG/ML IV PRN (14:30)
[2019-03-27] MEDS ORDERED: ROCURONIUM 10 MG/ML,10ML ONE (15:19)
[2019-03-27] MEDS ORDERED: SUCCINYLCHOLINE 20 MG/ML, 10ML ONE (15:19)
[2019-03-27] MEDS ORDERED: PROPOFOL 10 MG/ML, 20ML ONE (16:36)
[2019-03-27] MEDS ORDERED: ONDANSETRON 2MG/ML, 2ML ONE (16:36)
[2019-03-27] MEDS ORDERED: DEXAMETHASONE 4 MG/ML, 1ML ONE (16:36)
[2019-03-27] MEDS ORDERED: HYDROmorphone 2 MG/ML, 1ML ONE (17:45)
[2019-03-27] MEDS: HYDROmorphone 2 MG/ML, 1ML IVPush PRN ×2 (17:47→18:30)
[2019-03-27] MEDS ORDERED: MEPERIDINE/PF 25MG/ML,1ML ONE (17:48)
[2019-03-27] MEDS ORDERED: HYDR-3240 PO (19:57)
[2019-03-27] MEDS ORDERED: ONDA4TAB7 PO (19:58)
[2019-03-27] MEDS ORDERED: HYDROcodone/APAP 5/325 TABLET PO PRN (20:00)
[2019-03-27] MEDS ORDERED: HYDROmorphone 2 MG/ML, 1ML IV PRN (20:00)
[2019-03-27] MEDS ORDERED: ONDANSETRON 2MG/ML, 2ML IVPush PRN (20:00)
== END 2019-03-27 20:20 | disposition home or self-care (01) ==
LOC: OUT 12:44 → 4NOR 19:30 → OUT 20:20
PROVIDERS: ATTEND Plastic Surgery
DX: N65.0 Deformity of reconstructed breast (principal); N64.89 Other specified disorders of breast; F41.8 Other specified anxiety disorders; M06.9 Rheumatoid arthritis, unspecified; Z80.3 Family history of malignant neoplasm of breast; Z85.3 Personal history of malignant neoplasm of breast; Z98.890 Other specified postprocedural states; Z72.89 Other problems related to lifestyle; Z79.890 Hormone replacement therapy; Z79.899 Other long term (current) drug therapy; Z90.13 Acquired absence of bilateral breasts and nipples; Z92.3 Personal history of irradiation; Z87.39 Personal history of other diseases of the musculoskeletal system and connective tissue
CPT/HCPCS: 19350; 19366; 20926; C1729; J0171; J0330; J0690; J1100; J1170; J1580; J2175; J2250; J2405; J2704; J3010; J7120; G0378

== ENCOUNTER 2019-03-28 01:48 | Emergency (ER) | payer OTHER ==
[~2019-03-28] VITALS: Ht 167.6 cm; Wt 86.0 kg
[~2019-03-28 01:48] MED LIST changes: +HYDR-3240 PO
[2019-03-28 02:46] LABS: BASOPHILS # (AUTO) 0.03 x10^3/uL (0-0.1); BASOPHILS % (AUTO) 0 % (0-1); EOSINOPHILS # (AUTO) 0.01 x10^3/uL (0-0.4); EOSINOPHILS % (AUTO) 0 % (1-7); LYMPHOCYTES # (AUTO) 0.89 x10^3/uL (1-3.4); LYMPHOCYTES % (AUTO) 9 % (22-44); MD NO; MEAN CORPUSCULAR HEMOGLOBIN 34.1 pg (27.0-34.8); MEAN CORPUSCULAR HGB CONC 34.5 g/dL (32.4-35.8); MEAN CORPUSCULAR VOLUME 98.8 fL (80-100); MEAN PLATELET VOLUME 8.5 fL (7.4-10.4); MONOCYTES # (AUTO) 0.38 x10^3/uL (0.2-0.8); MONOCYTES % (AUTO) 4 % (2-9); NEUTROPHILS # (AUTO) 8.11 x10^3/uL (1.8-6.8); NEUTROPHILS % (AUTO) 86 % (42-75); PLATELET COUNT 174 x10^3/uL (130-400); RED BLOOD COUNT 3.55 x10^6/uL (3.82-5.3); RED CELL DISTRIBUTION WIDTH 12.4 % (9.6-15.2)
[2019-03-28 02:56] LABS: INTERNATIONAL NORMALIZED RATIO 1.02 (0.93-1.1); PROTHROMBIN TIME 10.7 Seconds (9.6-11.5)
[2019-03-28 02:57] LABS: ALANINE AMINOTRANSFERASE 16 U/L (12-78); ALBUMIN 3.5 g/dL (3.4-5.0); ANION GAP 6 mmol/L (5-15); CHLORIDE 110 mmol/L (98-107); CREATININE 0.63 mg/dL (0.55-1.02)
[2019-03-28 03:00] LABS: ALKALINE PHOSPHATASE 49 U/L (45-117); BILIRUBIN,TOTAL 1.7 mg/dL (0.2-1.0)
--- NOTE | 2019-03-28 03:21 | NUR ---
PT. PROVIDED WITH PILLOW PER REQUEST AND ASSISTED TO POSITION OF COMFORT. VS UPDATED. PT. DENIES NEEDS. NADN. CALL LIGHT REMAINS IN REACH. ALL MONITORS REMAIN IN PLACE.
[2019-03-28] MEDS ORDERED: LIDOCAINE 1%-EPI 1:100K, 20ML INFIL ONE (03:30)
[2019-03-28] MEDS ORDERED: LIDOCAINE 1%-EPI 1:100K, 20ML ONE ×2 (03:54→04:05)
[2019-03-28 05:15] VITALS: BP 113/54
== END 2019-03-28 05:16 | disposition home or self-care (01) ==
LOC: ED 05:00
DX: L76.22 Postprocedural hemorrhage of skin and subcutaneous tissue following other procedure (principal)
CPT/HCPCS: 36415; 80053; 85025; 85610; 85730; 99283

== ENCOUNTER → 2019-11-07 | Outpatient (CLI) | payer OTHER | END | disposition home or self-care (01) | LOC: CFH 11:09 | PROVIDERS: ATTEND Radiology Radiation Oncology | CPT/HCPCS: 71046 ==

== ENCOUNTER 2020-05-03 07:34 | Outpatient (CLI) | payer OTHER | END 2020-05-03 23:59 | disposition home or self-care (01) | LOC: ROC 07:34 | PROVIDERS: ATTEND Radiology Radiation Oncology | DX: Z08 Encounter for follow-up examination after completed treatment for malignant neoplasm (principal); C50.411 Malignant neoplasm of upper-outer quadrant of right female breast | CPT/HCPCS: 99213; G0463 ==